=== PATIENT | male | born 1965 | race Caucasian/White ===

== ENCOUNTER → 2021-04-11 | Outpatient (CLI) | payer OTHER, SELFPAY ==
--- NOTE | 2021-04-11 12:15 | EGD_PTH ---
PATIENT: BARBARA AVILA LOC: [facility] U#:[id number] AGE/SX: 55/M ROOM: RE04/11/[address]: Dr. Hakeem Mazariegos MD : [id number] BED: DIS: 04/11/2021 SPEC #: [id number] RECD: 04/11/21 15:07 STATUS: ORIN ELBERT #: [id number] FLETCHER: 04/11/21 12:[address]: Hakeem Mazariegos DEPT: SURGICAL PATHOLOGY RECD BY: Dee Kendall ENTERED: 04/12/21 09:54 SP TYPE: EGD BIOPSY OTHR DR: No Primary Care Phys [facility] Tissues: Esophagus, NOS Procedures: Surgery Specimen Level IV HEADER OPERATION: EGD with dilatation PRE-OP DIAGNOSIS: Dysphagia TISSUE SUBMITTED: Distal esophagus biopsy, rule out EE MICROSCOPIC DIAGNOSIS Distal esophagus, biopsy: Consistent with changes of reflux. See comment. AM:[email or web address] 04/13/2021 COMMENT The eosinophilic count varies from 2-5 per high power field. Classic features of eosinophilic esophagitis are not appreciated. Clinical correlation is suggested. Glandular mucosa and/or goblet cell metaplasia is not present. MICROSCOPIC DESCRIPTION Slides are reviewed. GROSS DESCRIPTION Received in fixative is one container labeled with the patient's name and designated distal esophagus. The specimen consists of multiple irregular fragments of light ro soft tissue that in aggregate measure 0.5 x 0.5 x 0.1 cm. The specimen is totally submitted in one cassette. / SJ:rg 04/12/21 TC:3 CPT: 35645
== END | disposition home or self-care (01) ==
LOC: LABSPEC 15:54
PROVIDERS: Referring Provider Internal Medicine Gastroenterology; Visit Provider Internal Medicine Gastroenterology
DX: R13.10 Dysphagia, unspecified (principal)
CPT/HCPCS: 88305